=== PATIENT | male | born 2000 | race Caucasian/White ===

== ENCOUNTER 2022-09-03 20:24 | Inpatient (IN) | payer OTHER ==
[~2022-09-03] VITALS: Ht 175.3 cm; Wt 80.9 kg
[2022-09-03 21:37] LABS: BASO % 0.1 % (0.0-1.0); HEMATOCRIT 39.6 % (42.0-52.0); HEMOGLOBIN 13.6 g/dl (13.5-17.5); LYMPH # 1.5 10^3/uL (1.5-5.0); LYMPH % 11.8 % (24.0-44.0); MEAN CORPUSCULAR HEMOGLOBIN 30.2 pg (27.0-33.0); MEAN CORPUSCULAR HGB CONC 34.3 g/dl (32.0-36.5); MEAN CORPUSCULAR VOLUME 87.8 fl (80.0-96.0); MONO # 0.9 10^3/uL (0.0-0.8); MONO % 7.6 % (2.0-8.0); NEUTROPHILS # 9.9 10^3/uL (1.5-8.5); NEUTROPHILS % 80.1 % (36.0-66.0); PLATELET COUNT, AUTOMATED 192 10^3/uL (150-450); RED BLOOD COUNT 4.51 10^6/uL (4.30-6.10); WHITE BLOOD COUNT 12.3 10^3/uL (4.0-10.0)
[2022-09-03 22:05] LABS: ALBUMIN 4.7 G/DL (3.2-5.2); BILIRUBIN,DIRECT 0.2 MG/DL (<0.4); BILIRUBIN,TOTAL 0.6 MG/DL (0.3-1.2); CALCIUM LEVEL 9.8 MG/DL (8.5-10.1); CREATININE FOR GFR 2.28 MG/DL (0.70-1.30); GLOMERULAR FILTRATION RATE 38.8 (>60); POTASSIUM SERUM 4.1 MMOL/L (3.5-5.1); TOTAL PROTEIN 7.2 G/DL (5.7-8.2)
[2022-09-03] MEDS ORDERED: NS 1,000 ML IV ONE (23:15)
[2022-09-03] MEDS ORDERED: ONDANSETRON 4MG 2ML VIAL IV ONE (23:15)
[2022-09-04] MEDS ORDERED: NS 1,000 ML IV ONE ×2 (00:15→03:50)
[2022-09-04] MEDS ORDERED: MORPHINE 4 MG/ML 1ML VIAL IV ONE (02:20)
[2022-09-04] MEDS ORDERED: METOCLOPRAMIDE INJ 10MG/2ML VIAL IV ONE (02:35)
[2022-09-04] MEDS ORDERED: HYDROMORPHONE HCL 0.5 MG/ 0.5 ML SYRINGE IV PRN (03:25)
[2022-09-04] MEDS: NS 1,000 ML IV SCH ×4 (03:25→23:41)
[2022-09-04] MEDS ORDERED: HOME MED LIST COMPLETE! XX SCH (03:35)
[2022-09-04 04:22] VITALS: BP 135/71
[2022-09-04 06:00] VITALS: BP 116/63
[2022-09-04 06:03] LABS: CREATININE FOR GFR 3.08 MG/DL (0.70-1.30); GLOMERULAR FILTRATION RATE 27.4 (>60); MAGNESIUM LEVEL 2.3 MG/DL (1.8-2.4); POTASSIUM SERUM 4.1 MMOL/L (3.5-5.1)
[2022-09-04] MEDS: ONDANSETRON 4MG 2ML VIAL IV PRN ×3 (10:46→19:05)
[2022-09-04 14:00] VITALS: BP 128/78
[2022-09-04] MEDS ORDERED: MORPHINE 2 MG/ML 1ML VIAL IV PRN (17:15)
[2022-09-04] MEDS ORDERED: GI COCKTAIL 50ML BTL(HYOSCYAMINE/MAALOX/LIDOCAINE VISCOUS)(1:3:1) PO ONE (18:00)
[2022-09-04] MEDS: ACETAMINOPHEN TAB 650MG DOSE (2X325MG) PO PRN ×2 (19:04→23:41)
[2022-09-04 22:00] VITALS: BP 122/74
[2022-09-05] MEDS: ONDANSETRON 4MG 2ML VIAL IV PRN ×3 (00:39→13:33)
[2022-09-05] MEDS ORDERED: ACETAMINOPHEN 1000MG 100ML IV BAG IV ONE (03:00)
[2022-09-05 06:00] VITALS: BP 118/74
[2022-09-05] MEDS: NS 1,000 ML IV SCH (06:19)
[2022-09-05 08:18] LABS: BASO % 0.2 % (0.0-1.0); EOS % 0.3 % (0.0-3.0); HEMATOCRIT 36.9 % (42.0-52.0); LYMPH % 19.5 % (24.0-44.0); MEAN CORPUSCULAR HEMOGLOBIN 29.9 pg (27.0-33.0); MEAN CORPUSCULAR HGB CONC 32.5 g/dl (32.0-36.5); NEUTROPHILS % 69.7 % (36.0-66.0); PLATELET COUNT, AUTOMATED 127 10^3/uL (150-450); RED BLOOD COUNT 4.01 10^6/uL (4.30-6.10); WHITE BLOOD COUNT 10.1 10^3/uL (4.0-10.0)
[2022-09-05] MEDS ORDERED: GI COCKTAIL 50ML BTL(HYOSCYAMINE/MAALOX/LIDOCAINE VISCOUS)(1:3:1) PO ONE (08:40)
[2022-09-05 08:46] LABS: ALBUMIN 3.4 G/DL (3.2-5.2); BILIRUBIN,TOTAL 0.6 MG/DL (0.3-1.2); CALCIUM LEVEL 8.4 MG/DL (8.5-10.1); CREATININE FOR GFR 3.59 MG/DL (0.70-1.30); MAGNESIUM LEVEL 2.1 MG/DL (1.8-2.4); POTASSIUM SERUM 4.9 MMOL/L (3.5-5.1); TOTAL PROTEIN 5.5 G/DL (5.7-8.2)
[2022-09-05] MEDS: PANTOPRAZOLE 40MG VIAL IV SCH (10:01)
[2022-09-05 13:08] LABS: ANTI-STREPTOLYSIN O QUANT < 25.0 IU/ML (<195); COMPLEMENT C3 82.8 MG/DL (82.0-160.0); COMPLEMENT C4 20.8 MG/DL (12-36)
[2022-09-05 13:50] LABS: URINE TOTAL PROTEIN 53.1 MG/DL (0-14)
[2022-09-05 14:00] VITALS: BP 137/81
[2022-09-05 14:00] LABS: TOTAL PROTEIN 24 HOUR URINE 955.8 MG/24HR (50-80)
[2022-09-05 16:40] LABS: APPEARANCE, URINE CLEAR (CLEAR); BACTERIA, URINE AUTO NEGATIVE (NEGATIVE); BILIRUBIN, URINE AUTO NEGATIVE (NEGATIVE); BLOOD, URINE BLOOD 1+ (NEGATIVE); COLOR, URINE YELLOW (YELLOW); GLUCOSE, URINE (UA) AUTO NEGATIVE (NEGATIVE); KETONE, URINE AUTO TRACE mg/dL (NEGATIVE); LEUKOCYTE ESTERASE, URINE AUTO NEGATIVE (NEGATIVE); MUCUS, URINE SMALL (NEGATIVE); NITRITE, URINE AUTO NEGATIVE (NEGATIVE); PROTEIN, URINE AUTO NEGATIVE (NEGATIVE); RBC, URINE AUTO 1 /HPF (0-3); SQUAMOUS EPITHELIAL CELL UR AU 0 /HPF (0-6); UROBILINOGEN, URINE AUTO 0.2 mg/dL (0.0-2.0); WBC, URINE AUTO 4 /HPF (0-3)
[2022-09-05] MEDS: ACETAMINOPHEN TAB 650MG DOSE (2X325MG) PO PRN (17:01)
[2022-09-05 20:00] VITALS: BP 138/90
[2022-09-06 06:00] VITALS: BP 136/79
[2022-09-06 06:17] LABS: BASO % 0.3 % (0.0-1.0); EOS # 0.1 10^3/uL (0.0-0.5); EOS % 0.6 % (0.0-3.0); HEMATOCRIT 35.2 % (42.0-52.0); HEMOGLOBIN 11.9 g/dl (13.5-17.5); LYMPH # 2.4 10^3/uL (1.5-5.0); MEAN CORPUSCULAR HEMOGLOBIN 30.1 pg (27.0-33.0); MEAN CORPUSCULAR HGB CONC 33.8 g/dl (32.0-36.5); MEAN CORPUSCULAR VOLUME 88.9 fl (80.0-96.0); MONO # 1.1 10^3/uL (0.0-0.8); NEUTROPHILS # 7.7 10^3/uL (1.5-8.5); NEUTROPHILS % 67.7 % (36.0-66.0); PLATELET COUNT, AUTOMATED 140 10^3/uL (150-450); RED BLOOD COUNT 3.96 10^6/uL (4.30-6.10); WHITE BLOOD COUNT 11.4 10^3/uL (4.0-10.0)
[2022-09-06 06:25] LABS: INR 1.13; PROTHROMBIN TIME 14.7 SECONDS (12.5-14.5)
[2022-09-06 06:42] LABS: ALBUMIN 3.2 G/DL (3.2-5.2); BILIRUBIN,TOTAL 0.7 MG/DL (0.3-1.2); CALCIUM LEVEL 8.5 MG/DL (8.5-10.1); CREATININE FOR GFR 2.7 MG/DL (0.70-1.30); GLOMERULAR FILTRATION RATE 31.9 (>60); MAGNESIUM LEVEL 1.8 MG/DL (1.8-2.4); TOTAL PROTEIN 5.2 G/DL (5.7-8.2)
[2022-09-06] MEDS: PANTOPRAZOLE 40MG VIAL IV SCH (07:47)
[2022-09-06 14:00] VITALS: BP 133/74
[2022-09-06] MEDS: ACETAMINOPHEN TAB 650MG DOSE (2X325MG) PO PRN ×2 (16:48→23:48)
[2022-09-06 21:23] VITALS: BP 132/83
[2022-09-07 06:00] VITALS: BP 134/79
[2022-09-07 06:09] LABS: BASO % 0.4 % (0.0-1.0); EOS # 0.2 10^3/uL (0.0-0.5); EOS % 3.1 % (0.0-3.0); HEMATOCRIT 35.5 % (42.0-52.0); HEMOGLOBIN 12.2 g/dl (13.5-17.5); LYMPH # 2.7 10^3/uL (1.5-5.0); LYMPH % 36.5 % (24.0-44.0); MEAN CORPUSCULAR HEMOGLOBIN 30.4 pg (27.0-33.0); MEAN CORPUSCULAR HGB CONC 34.4 g/dl (32.0-36.5); MEAN CORPUSCULAR VOLUME 88.5 fl (80.0-96.0); MONO # 0.8 10^3/uL (0.0-0.8); MONO % 10.9 % (2.0-8.0); NEUTROPHILS # 3.6 10^3/uL (1.5-8.5); NEUTROPHILS % 48.8 % (36.0-66.0); PLATELET COUNT, AUTOMATED 150 10^3/uL (150-450); RED BLOOD COUNT 4.01 10^6/uL (4.30-6.10); WHITE BLOOD COUNT 7.4 10^3/uL (4.0-10.0)
[2022-09-07 06:38] LABS: ALBUMIN 3.1 G/DL (3.2-5.2); BILIRUBIN,TOTAL 0.8 MG/DL (0.3-1.2); CALCIUM LEVEL 8.4 MG/DL (8.5-10.1); CREATININE FOR GFR 1.94 MG/DL (0.70-1.30); GLOMERULAR FILTRATION RATE 46.7 (>60); MAGNESIUM LEVEL 1.7 MG/DL (1.8-2.4)
[2022-09-07] MEDS ORDERED: MAGNESIUM OXIDE 400MG TAB (MAG-OX) PO ONE (08:15)
[2022-09-07] MEDS: PANTOPRAZOLE 40MG VIAL IV SCH (08:43)
[2022-09-07 09:13] LABS: TOTAL PROTEIN 5.4 G/DL (5.7-8.2)
[2022-09-08] MEDS ORDERED: IBUP-1022 PO (17:20)
== END 2022-09-07 11:01 | disposition home or self-care (01) | DRG 558 ==
LOC: M ED 20:24 → M ED INP 09-04 03:24 → ENRESERV 09-04 03:48 → M MSPAV 09-04 04:21
PROVIDERS: ADMIT Internal Medicine; ATTEND Family Medicine
DX: M62.82 Rhabdomyolysis (principal); N17.9 Acute kidney failure, unspecified; R11.2 Nausea with vomiting, unspecified; R10.9 Unspecified abdominal pain; E86.0 Dehydration

== ENCOUNTER 2022-09-08 13:52 | Emergency (ER) | payer OTHER ==
[~2022-09-08] VITALS: Ht 175.3 cm; Wt 82.6 kg
[2022-09-08] MEDS ORDERED: IBUP-1022 PO (17:20)
[2022-09-08 17:38] VITALS: BP 141/80
== END 2022-09-08 17:49 | disposition home or self-care (01) ==
LOC: M ED 13:52
DX: I82.611 Acute embolism and thrombosis of superficial veins of right upper extremity (principal)